=== PATIENT | female | born 1940 | race Caucasian/White ===

== ENCOUNTER 2019-12-04 19:24 | Emergency (ER) | payer OTHER ==
[~2019-12-04] VITALS: Ht 152.4 cm; Wt 72.6 kg
[2019-12-04 19:30] VITALS: BP_SYST 126
--- NOTE | 2019-12-04 19:30 | NUR ---
Patient triaged and placed in waiting room. VSS and patient appears in no acute distress at this time. Accompanied by transporter, awaiting available bed, and MD notified of need for MSE.
--- NOTE | 2019-12-04 21:00 | NUR ---
ED MD Khan at bedside for medical evaluation.
[2019-12-04 21:44] LABS: CHOLESTEROL 242 mg/dL (<200); HDL CHOLESTEROL 36 mg/dL (>55); LDL CHOLESTEROL 135 mg/dL (<100); TRIGLYCERIDES 410 mg/dL (30-150)
[2019-12-04 21:52] LABS: ANION GAP 8 (5-15); CALCIUM 8.7 mg/dL (8.4-11.0); CHLORIDE 105 mmol/L (98-107); CREATININE 0.76 mg/dL (0.55-1.30); GLUCOSE 184 mg/dL (70-99); POTASSIUM 3.7 mmol/L (3.5-5.1); SODIUM SERUM 140 mmol/L (136-145); UREA NITROGEN, BLOOD 21 mg/dL (8-21)
[2019-12-04 21:59] LABS: HEMATOCRIT 38.3 % (36-48); HEMOGLOBIN 12.2 g/dL (12.0-16.0); WHITE BLOOD COUNT (AUTO) 8.3 K/uL (4.8-10.8)
[2019-12-04 22:00] LABS: BASOPHILS % (AUTO) 0.4 % (0.0-2.0); EOSINOPHILS # (AUTO) 0.2 K/uL (0.0-0.4); EOSINOPHILS % (AUTO) 2.4 % (0.0-4.0); LYMPHOCYTES % (AUTO) 35.6 % (20.5-51.5); MEAN CORPUSCULAR HEMOGLOBIN 21 pg (27-31); MEAN CORPUSCULAR HGB CONC 32 % (32-36); MEAN CORPUSCULAR VOLUME 65 fL (79.0-98.0); MONOCYTES # (AUTO) 0.6 K/uL (0.0-1.0); MONOCYTES % (AUTO) 7.6 % (1.7-9.3); NEUTROPHILS # (AUTO) 4.5 K/uL (1.8-7.7); PLATELET COUNT (AUTO) 302 K/uL (130-430); RED CELL DISTRIBUTION WIDTH 16.1 % (9.0-15.0)
[2019-12-04 22:10] LABS: ALANINE AMINOTRANSFERASE 15 U/L (12-78); ALBUMIN 3.7 g/dL (3.4-4.8); ASPARTATE AMINOTRANSFERASE 16 U/L (10-37); TOTAL BILIRUBIN 0.4 mg/dL (0.0-1.0)
[2019-12-04 22:13] LABS: ACETAMINOPHEN < 1 ug/mL (1-30); ALCOHOL, BLOOD < 3 mg/dL (<10)
--- NOTE | 2019-12-05 00:01 | NUR ---
Patient to ER bed 6 to gown for evaluation. Side rails up. Report given to Airam LIANG.
--- NOTE | 2019-12-05 00:30 | NUR ---
Patient AOx4, presents to ED for c/o increased confusion. Patient from [facility]. Patient sleeping at this time. Patient in no acute distress.
--- NOTE | 2019-12-05 00:31 | NUR ---
Patient requires medical clearance prior to transfer to [facility].
--- NOTE | 2019-12-05 02:00 | NUR ---
Patient resting comfortably. No acute respiratory distress noted.
--- NOTE | 2019-12-05 04:08 | NUR ---
Report given to Esther at receiving facility.
[2019-12-05 04:30] VITALS: BP_SYST 107
--- NOTE | 2019-12-05 04:30 | NUR ---
Patient to be transferred to [facility]. Is being transferred post medical clearance. Receiving facility has accepting physician and available space. ER physician has signed transfer form. Patient or responsible alliance party has agreed to transfer and signed form. Patient belongings inventoried and will be sent with patient. Copy of nursing notes, lab reports, EKG, Physicians Orders and X-rays to be sent with patient. Report called to Esther at receiving facility. Receiving physician is Juanjose[facility] has been called for transfer. ETA is 10 minutes.
== END 2019-12-05 04:30 ==
LOC: SED 19:27
DX: R45.1 Restlessness and agitation (principal); F31.9 Bipolar disorder, unspecified; E11.9 Type 2 diabetes mellitus without complications; Z88.0 Allergy status to penicillin; Z88.6 Allergy status to analgesic agent; Z88.8 Allergy status to other drugs, medicaments and biological substances
CPT/HCPCS: 36415; 80053; 80061; 83036; 85025; 87081; 99285; G0480; G0481; G0482

== ENCOUNTER 2019-12-10 12:23 | Emergency (ER) | payer OTHER ==
[~2019-12-10] VITALS: Ht 167.6 cm; Wt 77.1 kg
[2019-12-10 12:40] VITALS: BP_SYST 144
[2019-12-10 14:15] LABS: BASOPHILS # (AUTO) 0.1 K/uL (0.0-0.2); BASOPHILS % (AUTO) 0.8 % (0.0-2.0); EOSINOPHILS # (AUTO) 0.1 K/uL (0.0-0.4); EOSINOPHILS % (AUTO) 0.6 % (0.0-4.0); HEMATOCRIT 40.4 % (36-48); LYMPHOCYTES # (AUTO) 3.2 K/uL (1.0-5.5); LYMPHOCYTES % (AUTO) 33.7 % (20.5-51.5); MEAN CORPUSCULAR HEMOGLOBIN 21 pg (27-31); MEAN CORPUSCULAR HGB CONC 32 % (32-36); MEAN CORPUSCULAR VOLUME 64 fL (79.0-98.0); NEUTROPHILS # (AUTO) 5.1 K/uL (1.8-7.7); NEUTROPHILS % (AUTO) 53.9 % (40.0-70.0); PLATELET COUNT (AUTO) 368 K/uL (130-430); RED BLOOD CELL COUNT(AUTO) 6.28 MIL/uL (4.2-6.2); RED CELL DISTRIBUTION WIDTH 16.3 % (9.0-15.0); WHITE BLOOD COUNT (AUTO) 9.5 K/uL (4.8-10.8)
[2019-12-10 14:25] LABS: ANION GAP 13 (5-15); CALCIUM 9.3 mg/dL (8.4-11.0); CHLORIDE 102 mmol/L (98-107); CREATININE 0.87 mg/dL (0.55-1.30); GLUCOSE 139 mg/dL (70-99); POTASSIUM 3.8 mmol/L (3.5-5.1); SODIUM SERUM 138 mmol/L (136-145); UREA NITROGEN, BLOOD 25 mg/dL (8-21)
[2019-12-10 14:30] LABS: ALANINE AMINOTRANSFERASE 18 U/L (12-78); ASPARTATE AMINOTRANSFERASE 29 U/L (10-37); TOTAL BILIRUBIN 0.9 mg/dL (0.0-1.0)
[2019-12-10 14:54] LABS: CKMB RELATIVE INDEX 1.3 (0.0-2.9); CREATINE KINASE MB 6.1 ng/mL (0-3.6)
--- NOTE | 2019-12-10 15:10 | NUR ---
Patient to ER bed 05 to gown for evaluation. Side rails up. Report given to GARTH Betancourt
--- NOTE | 2019-12-10 15:20 | NUR ---
pt arrrives from [facility] d/t [facility]. Pt is currently AAOx2. pt was sent by Dr. Mcmillan for [facility]
[2019-12-10] MEDS ORDERED: MORPHINE 4 MG/ML INJ. SYRINGE IM ONE (15:30)
[2019-12-10] MEDS ORDERED: PROCHLORPERAZINE EDISYLATE 10 MG/2 ML VIAL IM ONE (15:45)
--- NOTE | 2019-12-10 15:53 | NUR ---
medicated the pt w/ Morphine and Compazine per MD order. Will reassess
--- NOTE | 2019-12-10 16:15 | NUR ---
Patient transported to radiology via gurney, accompanied by dialysis equipment technician
--- NOTE | 2019-12-10 18:15 | NUR ---
urine sample obtained via straight cath
[2019-12-10] MEDS ORDERED: cefTRIAXone 1 GM in LIDOCAINE 1%, 20 ML MDV 2.1 ML IM ONE (18:30)
--- NOTE | 2019-12-10 18:30 | NUR ---
medicated the pt w/ Rocephin IM
--- NOTE | 2019-12-10 19:14 | NUR ---
pt will be returning back to [facility]
--- NOTE | 2019-12-10 19:19 | NUR ---
Called [facility]. Spoke w/ Maribell GRAF, made her aware that the pt will be returning.
[2019-12-10 19:27] VITALS: BP_SYST 144
--- NOTE | 2019-12-10 19:27 | NUR ---
care endorsed to Baron LIANG.
--- NOTE | 2019-12-10 19:30 | NUR ---
Patient given written and verbal discharge instructions and verbalizes understanding. ER MD discussed with patient the results and treatment provided. Patient in stable condition. ID arm band removed. Rx of Mocrobid given. Patient educated on pain management and to follow up with PMD. Pain Scale 0/10. Opportunity for questions provided and answered. Medication side effect fact sheet provided.
--- NOTE | 2019-12-10 20:45 | NUR ---
Pt picked up by EMS crew. transported on [facility] Report given to EMS, Bonita at given report.
== END 2019-12-10 19:27 | disposition home or self-care (01) ==
LOC: SED 12:23
DX: M54.9 Dorsalgia, unspecified (principal); R10.9 Unspecified abdominal pain; N39.0 Urinary tract infection, site not specified; E78.5 Hyperlipidemia, unspecified; E11.9 Type 2 diabetes mellitus without complications; Z86.2 Personal history of diseases of the blood and blood-forming organs and certain disorders involving the immune mechanism; Z88.0 Allergy status to penicillin; Z88.6 Allergy status to analgesic agent; Z90.49 Acquired absence of other specified parts of digestive tract
CPT/HCPCS: 36415; 71045; 74176; 80053; 81002; 82550; 82553; 82962; 83690; 83880; 84484; 85025; 93005; 96372; 99285; J0696; J0780; J2001; J2270